=== PATIENT | female | born 1975 | race Caucasian/White ===

== ENCOUNTER 2017-06-19 10:36 | Emergency (ER) | payer BC ==
[~2017-06-19] VITALS: Wt 67.5 kg
[2017-06-19] MEDS ORDERED: FAMOTIDINE 20 MG INJ IV STA (11:20)
[2017-06-19] MEDS ORDERED: ONDANSETRON 4 MG INJ IV STA (11:20)
[2017-06-19] MEDS ORDERED: LIDOCAINE/MYLANTA 40 ML BTL PO STA (11:20)
[2017-06-19] MEDS ORDERED: SOD CHLORIDE 0.9% 1,000 ML IV STA (11:20)
[2017-06-19] MEDS ORDERED: BELLADONNA/PHENOBARBITAL TAB PO STA (11:20)
[2017-06-19 11:46] LABS: BASOPHILS % 0.4 % (0.0-2.0); EOSINOPHILS % 0.1 % (0.0-7.0); HEMATOCRIT 46.9 % (37.0-47.0); HEMOGLOBIN 15.1 g/dl (12.0-16.0); LYMPHOCYTES # 1.8 10^3/ul (0.8-2.9); LYMPHOCYTES % 22.5 % (15.0-51.0); MEAN CORPUSCULAR HEMOGLOBIN 28.1 pg (29.0-33.0); MEAN CORPUSCULAR HGB CONC 32.2 g/dl (32.0-37.0); MEAN CORPUSCULAR VOLUME 87.3 fl (82.0-101.0); MEAN PLATELET VOLUME 10.5 fl (7.4-10.4); MONOCYTE # 0.4 10^3/ul (0.3-0.9); MONOCYTES % 4.6 % (0.0-11.0); NEUTROPHIL # 5.6 10^3/ul (1.6-7.5); PLATELET COUNT 329 10^3/UL (140-415); RED BLOOD COUNT 5.37 10^6/ul (4.20-5.40); RED CELL DISTRIBUTION WIDTH 12.7 % (11.5-14.5); WHITE BLOOD COUNT 7.8 10^3/ul (4.8-10.8)
[2017-06-19 11:59] LABS: ADD UMIC NO; UR ASCORBIC ACID NEGATIVE (NEGATIVE); UR BILIRUBIN (Dip) NEGATIVE (NEGATIVE); UR BLOOD (Dip) NEGATIVE (NEGATIVE); UR CLARITY CLEAR (CLEAR); UR COLOR STRAW (YELLOW); UR GLUCOSE (Dip) NEGATIVE (NEGATIVE); UR KETONES (Dip) NEGATIVE (NEGATIVE); UR LEUKOCYTE ESTERASE (Dip) NEGATIVE Leu/ul (NEGATIVE); UR NITRITE (Dip) NEGATIVE (NEGATIVE); UR SPECIFIC GRAVITY (Dip) 1.006 (1.003-1.030); UR TOTAL PROTEIN (Dip) NEGATIVE (NEGATIVE); UR UROBILINOGEN (Dip) NEGATIVE (NEGATIVE)
[2017-06-19 12:06] LABS: ALBUMIN 4.8 g/dl (3.3-4.9); ALBUMIN/GLOBULIN RATIO 1.06; BILIRUBIN,INDIRECT 0.5 mg/dl (0-1.1); BILIRUBIN,TOTAL 0.5 mg/dl (0.2-1.3); CALCIUM 10.2 mg/dl (8.4-10.2); CREATININE 0.88 mg/dl (0.44-1.00); POTASSIUM 4.6 mmol/L (3.5-5.1); TOTAL PROTEIN 9.3 g/dl (6.1-8.1)
--- NOTE | 2017-06-19 12:30 | RADRPT ---
PROCEDURE: Right upper quadrant abdominal ultrasound. CLINICAL INDICATION: Abdominal pain TECHNIQUE: Vang scale and color doppler ultrasound images of the right upper quadrant of the abdom en. COMPARISON: None FINDINGS: Pancreas: Visualized portions appear of normal echogenicity without focal lesions. Liver: Morphology:Normal in size. Contour:Normal, no evidence of nodularity. Echogenicity: Normal. Focal lesions:None. Main portal vein: Patent with hepatopetal flow. Biliary System: Gallbladder wall: Normal thickness. Gallstones: None. Intrahepatic bile ducts: Normal caliber. Common bile duct diameter (mm): 2.3 Kidneys: Right length (cm) : 10.7 Right cortical thickness: Normal. Echogenicity: Normal. Hydronephrosis: None. Renal calculi: None. Focal lesions: None. Free fluid/ascites: None. Abdominal aorta: Not visualized by the accounting officer. Other findings: None. IMPRESSION: Normal gallbladder without gallstones. RPTAT: AADD .Juanito Quijano MD, MD Date Time Electronically viewed and signed by .Juanito Quijano MD, on 06/19/2017 12:30 .B/
[2017-06-19] MEDS ORDERED: SUCR1TAB56 PO (13:22)
[2017-06-19] MEDS ORDERED: FAMO-96 PO (13:22)
[2017-06-19] MEDS ORDERED: HYDR-906 PO (13:23)
--- NOTE | 2017-06-19 13:33 | ERD ---
ER Documentation Chief Complaint Date/Time DATE: 06/19/17 TIME: 13:28 Chief Complaint ABD PAIN X3 DAYS, NO N/V/D HPI This is a 41-year-old female that presents to the ER with her for a month long history of epigastric burning abdominal pain that radiates throughout her entire abdomen. Patient states she has nausea and nonbilious nonbloody vomiting. She denies any diarrhea. Denies any constipation or bloody stools. Patient admits to decreased appetite and weight loss. Patient states that she was taking ibuprofen for the pain, and famotidine, however it did not work. Patient went to [facility] and was transferred to [facility] for inpatient workup which would consist of endoscopy and colonoscopy, however patient left AMA because according to patient it was taking too long to get the test done. He presents today requesting readmitted to the hospital for GI workup. She does have a referral to see a GI doctor, and her appointment is on Thursday, however she does not want to wait secondary to pain. Denies any fevers or chills. ROS 12 point review of systems was done, all negative except per HPI. Medications Home Meds Active Scripts Hydrocodone/Acetaminophen ([place] 5-325 Tablet) 1 Each Tablet, 1 TAB PO Q6H Y for PAIN, #20 TAB Prov:FLORA BURR 06/19/17 Sucralfate* (Carafate*) 1 Gm Tab, 1 GM PO QID for 7 Days, TAB Prov:AMINAH,FLORA C 06/19/17 Famotidine* (Pepcid*) 20 Mg Tablet, 20 MG PO BID for 15 Days, TAB Prov:FLORA BURR C 06/19/17 Allergies Allergies: Coded Allergies: No Known Allergy (Unverified , 06/19/17) PMhx/Soc Medical and Surgical Hx: pt denies Medical Hx, pt denies Surgical Hx Hx Alcohol Use: No Hx Substance Use: No Hx Tobacco Use: No Physical Exam Vitals Vital Signs Date Time Temp Pulse Resp B/P Pulse Ox O2 Delivery O2 Flow Rate FiO2 06/19/17 10:49 98.3 94 17 136/85 98 Physical Exam GENERAL: The patient is well developed and appropriate for usual state of health , in no apparent distress. HEENT: Atraumatic. CHEST: Clear to auscultation bilaterally. There are no rales, wheezes or rhonchi. HEART: Regular rate and rhythm. No murmurs, clicks, rubs or gallops. ABDOMEN: Soft, nontender and nondistended. Good bowel sounds. No rebound or guarding. No gross peritonitis. No gross organomegaly or masses. No Recinos sign or McBurney point tenderness. BACK: No midline or flank tenderness.. NEURO: Alert and oriented. Result Diagram: 06/19/17 1130 06/19/17 1130 Results 24 hrs Laboratory Tests Test 06/19/17 11:30 06/19/17 11:35 White Blood Count 7.810^3/ul Red Blood Count 5.3710^6/ul Hemoglobin 15.1g/dl Hematocrit 46.9% Mean Corpuscular Volume 87.3fl Mean Corpuscular Hemoglobin 28.1pg Mean Corpuscular Hemoglobin Concent 32.2g/dl Red Cell Distribution Width 12.7% Platelet Count 72121^3/UL Mean Platelet Volume 10.5fl Neutrophils % 72.0% Lymphocytes % 22.5% Monocytes % 4.6% Eosinophils % 0.1% Basophils % 0.4% Nucleated Red Blood Cells % 0.0/100WBC Neutrophils # 5.610^3/ul Lymphocytes # 1.810^3/ul Monocytes # 0.410^3/ul Eosinophils # 0.010^3/ul Basophils # 0.010^3/ul Nucleated Red Blood Cells # 0.010^3/ul Sodium Level 142mmol/L Potassium Level 4.6mmol/L Chloride Level 102mmol/L Carbon Dioxide Level 31mmol/L Anion Gap 14 Blood Urea Nitrogen 7mg/dl Creatinine 0.88mg/dl Glucose Level 97mg/dl Calcium Level 10.2mg/dl Total Bilirubin 0.5mg/dl Direct Bilirubin 0.00mg/dl Indirect Bilirubin 0.5mg/dl Aspartate Amino Transf (AST/SGOT) 34IU/L Alanine Aminotransferase (ALT/SGPT) 53IU/L Alkaline Phosphatase 37IU/L Total Protein 9.3g/dl Albumin 4.8g/dl Globulin 4.50g/dl Albumin/Globulin Ratio 1.06 Lipase 82U/L Urine Color STRAW Urine Clarity CLEAR Urine pH 8.0 Urine Specific [place] 1.006 Urine Ketones NEGATIVEmg/dL Urine Nitrite NEGATIVEmg/dL Urine Bilirubin NEGATIVEmg/dL Urine Urobilinogen NEGATIVEmg/dL Urine Leukocyte Esterase NEGATIVELeu/ul Urine Hemoglobin NEGATIVEmg/dL Urine Glucose NEGATIVEmg/dL Urine Total Protein NEGATIVEmg/dl Current Medications Medications (Trade) Dose Ordered Sig/Yared Route PRN Reason Start Time Stop Time Status Last Admin Dose Admin Sodium Chloride (NS) 1,000 ml @ 1,000 mls/hr Q1H STAT IV 06/19/17 11:20 06/19/17 12:19 DC 06/19/17 11:39 Ondansetron HCl (Zofran Inj) 4 mg ONCE STAT IV 06/19/17 11:20 06/19/17 11:21 DC 06/19/17 11:35 Famotidine (Pepcid Iv) 20 mg ONCE STAT IV 06/19/17 11:20 06/19/17 11:21 DC 06/19/17 11:35 Miscellaneous Medication (Gi Cocktail (2)) 40 ml ONCE STAT PO 06/19/17 11:20 06/19/17 11:21 DC 06/19/17 11:35 Belladonna/ Phenobarbital () 2 tab ONCE STAT PO 06/19/17 11:20 06/19/17 11:21 DC 06/19/17 11:36 [place] [id number] Radiology Main Line: [phone] DIAGNOSTIC IMAGING REPORT Patient: REBECA CORTES : 1975 Age: 41 Sex: F MR #: [id number] DOS: 06/19/17 1120 Ordering MD: FLORA BURR PA-C Location: [facility] Room/Bed: PROCEDURE: Right upper quadrant abdominal ultrasound. CLINICAL INDICATION: Abdominal pain TECHNIQUE: Vang scale and color doppler ultrasound images of the right upper quadrant of the abdomen. COMPARISON: None FINDINGS: Pancreas: Visualized portions appear of normal echogenicity without focal lesions. Liver: Morphology:Normal in size. Contour:Normal, no evidence of nodularity. Echogenicity: Normal. Focal lesions:None. Main portal vein: Patent with hepatopetal flow. Biliary System: Gallbladder wall: Normal thickness. Gallstones: None. Intrahepatic bile ducts: Normal caliber. Common bile duct diameter (mm): 2.3 Kidneys: Right length (cm) : 10.7 Right cortical thickness: Normal. Echogenicity: Normal. Hydronephrosis: None. Renal calculi: None. Focal lesions: None. Free fluid/ascites: None. Abdominal aorta: Not visualized by the palm and back forger. Other findings: None. IMPRESSION: Normal gallbladder without gallstones. RPTAT: AADD .Juanito Quijano MD, MD Date Time Electronically viewed and signed by .Juanito Quijano MD, on 06/19/2017 12:30 .B/ CC: FLORA BURR Procedures/MDM Patient was stable throughout ER course, she was given a GI cocktail, famotidine and Zofran her symptoms improved in the ER. Patient to discontinue ibuprofen use at home as this could be making pain worse. Blood work and imaging was ordered, patient refused CT scan as she just had one last week at [facility] and she did not want another one. There is no evidence of leukocytosis, electrolyte abnormality, transaminitis, increased lipase or of any gallbladder disease. EKG was taken and read by Dr. Lucas there was no evidence of acute myocardial infarction. 66bpm no st elevation or t wave inversion. I contacted patient's PCP Dr. Humphreys who stated she did have an authorization to see a GI doctor. I discussed laboratory findings and imaging studies with the patient, patient does not want to wait to see GI doctor and wants something done immediately. At this time patient's vital signs are normal, and her diagnostic examinations were all normal as well. This case with my supervising physician Dr. Lucas, he agrees with my medical decision making and plan. Departure Diagnosis: Primary Impression: Abdominal pain Condition: Stable Patient Instructions: Abdominal Pain Additional Instructions: Call your primary care doctor TOMORROW for an appointment during the next 1-2 days.See the doctor sooner or return here if your condition worsens before your appointment time. PLEASE DO NOT MISS YOUR APPOINTMENT WITH YOUR GI DOCTOR. YOU NEED ANY ENDOSCOPY/ COLONOSOCOPY. FLORA BURR Jun 19, 2017 13:33
[2017-06-19 14:25] VITALS: BP 109/68; PULSE 66; RESP 16; TEMP 98.4
== END 2017-06-19 14:25 | disposition home or self-care (01) ==
LOC: FTE 10:36
DX: R10.13 Epigastric pain (principal); R11.0 Nausea
CPT/HCPCS: 36415; 76705; 80053; 81003; 83690; 85025; 96374; 96375; 99285; J2405; J7030; Z7610; 93005